=== PATIENT | female | born 1970 | race Caucasian/White ===

== ENCOUNTER 2018-06-02 23:47 | Observation (INO) | payer OTHER ==
[2018-06-03] MEDS: SOD CHLORIDE 0.9% 1,000 ML IV ×2 (00:07→08:00)
[2018-06-03] MEDS: LORAZEPAM 2 MG INJ IV ×2 (00:07→01:37)
[2018-06-03 00:51] LABS: ADD MAN DIFF? NO
[2018-06-03 00:53] LABS: WHITE BLOOD COUNT 10.6 10^3/ul (4.8-10.8)
[2018-06-03 00:53] LABS: BASOPHILS % 0.3 % (0.0-2.0); EOSINOPHILS % 0.3 % (0.0-7.0); HEMATOCRIT 37.9 % (37.0-47.0); HEMOGLOBIN 14.1 g/dl (12.0-16.0); LYMPHOCYTES # 1.4 10^3/ul (0.8-2.9); LYMPHOCYTES % 13.6 % (15.0-51.0); MEAN CORPUSCULAR HEMOGLOBIN 31.1 pg (29.0-33.0); MEAN CORPUSCULAR HGB CONC 37.2 g/dl (32.0-37.0); MEAN CORPUSCULAR VOLUME 83.5 fl (82.0-101.0); MEAN PLATELET VOLUME 8.3 fl (7.4-10.4); MONOCYTE # 0.4 10^3/ul (0.3-0.9); MONOCYTES % 3.8 % (0.0-11.0); NEUTROPHIL # 8.6 10^3/ul (1.6-7.5); NEUTROPHILS % 81.6 % (39.0-77.0); PLATELET COUNT 325 10^3/UL (140-415); RED BLOOD COUNT 4.54 10^6/ul (4.20-5.40); RED CELL DISTRIBUTION WIDTH 11.4 % (11.5-14.5)
[2018-06-03 01:13] LABS: ANION GAP 11 (5-13); BLOOD UREA NITROGEN 10 mg/dl (7-20); CALCIUM 9.2 mg/dl (8.4-10.2); CARBON DIOXIDE 27 mmol/L (21-31); CHLORIDE 86 mmol/L (97-110); CREATININE 0.47 mg/dl (0.44-1.00); Estimated GFR > 60 mL/min (>60); GLUCOSE 156 mg/dl (70-220); POTASSIUM 3.3 mmol/L (3.5-5.1); SODIUM 124 mmol/L (135-144)
[2018-06-03] MEDS ORDERED: ACETAMINOPHEN 325 MG TAB PO (05:00)
[2018-06-03] MEDS ORDERED: NACL 0.9% 3 ML SYG IV (05:00)
[2018-06-03] MEDS ORDERED: LABETALOL HCL 20MG INJ IV (05:00)
[2018-06-03] MEDS ORDERED: DIAZEPAM 5 MG/ML SYG IV (05:00)
[2018-06-03] MEDS ORDERED: METOCLOPRAMIDE 10 MG INJ IV (05:00)
[2018-06-03] MEDS: POTASSIUM CHLORIDE 100 ML IVPB (08:05)
[2018-06-03 09:45] LABS: OSMOLALITY 254 mOsm/kg (280-295)
[2018-06-03] MEDS: LACOSAMIDE (100 MG/10 ML PO SYR) PO ×2 (12:19→20:35)
[2018-06-03] MEDS: LEVOTHYROXINE 125 MCG TAB PO (12:19)
[2018-06-03 12:55] LABS: SODIUM,URINE RANDOM 17 mmol/L (30-90)
[2018-06-03 12:58] LABS: OSMOLALITY,URINE 99 mOsm/kg (250-1200)
[2018-06-03 13:01] LABS: HEMOGLOBIN A1C 4.5 % (0-5.9)
[2018-06-03 13:04] LABS: SODIUM 132 mmol/L (135-144)
[2018-06-03 13:10] LABS: MAGNESIUM 1.8 mg/dl (1.7-2.5)
[2018-06-03 14:25] LABS: ADD UMIC YES; UR ASCORBIC ACID NEGATIVE (NEGATIVE); UR BACTERIA FEW /HPF (NONE SEEN); UR BILIRUBIN (Dip) NEGATIVE (NEGATIVE); UR BLOOD (Dip) 1+ mg/dL (NEGATIVE); UR CLARITY CLEAR (CLEAR); UR COLOR STRAW (YELLOW); UR GLUCOSE (Dip) NEGATIVE (NEGATIVE); UR KETONES (Dip) NEGATIVE (NEGATIVE); UR LEUKOCYTE ESTERASE (Dip) 3+ Leu/ul (NEGATIVE); UR MUCUS FEW /HPF (NONE SEEN); UR NITRITE (Dip) NEGATIVE (NEGATIVE); UR RBC 1 /HPF (0-5); UR SPECIFIC GRAVITY (Dip) 1.003 (1.003-1.030); UR TOTAL PROTEIN (Dip) NEGATIVE (NEGATIVE); UR UROBILINOGEN (Dip) NEGATIVE (NEGATIVE); UR WBC 22 /HPF (0-5)
[2018-06-03 14:37] LABS: AMPHETAMINE/METHAMPHETAMINE Negative (NEGATIVE); BARBITURATES Negative (NEGATIVE); CANNABINOIDS Negative (NEGATIVE); COCAINE Negative (NEGATIVE); OPIATES Negative (NEGATIVE)
[2018-06-03 14:40] LABS: BENZODIAZEPINES Positive (NEGATIVE)
[2018-06-03 15:41] LABS: SODIUM 132 mmol/L (135-144)
[2018-06-03 15:45] LABS: ALANINE AMINOTRANSFERASE 40 IU/L (13-69); ALBUMIN 4.2 g/dl (3.3-4.9); ALKALINE PHOSPHATASE 91 IU/L (42-121); ASPARTATE AMINO TRANSFERASE 23 IU/L (15-46); BILIRUBIN,INDIRECT 0.3 mg/dl (0-1.1); BILIRUBIN,TOTAL 0.3 mg/dl (0.2-1.3); PHOSPHORUS 3.5 mg/dl (2.5-4.9)
[2018-06-03 22:32] LABS: SODIUM 137 mmol/L (135-144)
[2018-06-04 05:36] LABS: ADD MAN DIFF? NO
[2018-06-04 05:38] LABS: WHITE BLOOD COUNT 7.2 10^3/ul (4.8-10.8)
[2018-06-04 05:38] LABS: BASOPHILS % 0.6 % (0.0-2.0); EOSINOPHILS % 0.6 % (0.0-7.0); HEMATOCRIT 41.6 % (37.0-47.0); HEMOGLOBIN 14.9 g/dl (12.0-16.0); LYMPHOCYTES % 28.1 % (15.0-51.0); MEAN CORPUSCULAR HEMOGLOBIN 30.8 pg (29.0-33.0); MEAN CORPUSCULAR HGB CONC 35.8 g/dl (32.0-37.0); MEAN CORPUSCULAR VOLUME 86.1 fl (82.0-101.0); MEAN PLATELET VOLUME 8.8 fl (7.4-10.4); MONOCYTE # 0.6 10^3/ul (0.3-0.9); MONOCYTES % 8.9 % (0.0-11.0); NEUTROPHIL # 4.4 10^3/ul (1.6-7.5); NEUTROPHILS % 61.5 % (39.0-77.0); PLATELET COUNT 356 10^3/UL (140-415); RED BLOOD COUNT 4.83 10^6/ul (4.20-5.40)
[2018-06-04 06:00] LABS: ALANINE AMINOTRANSFERASE 39 IU/L (13-69); ALBUMIN/GLOBULIN RATIO 1.48; ALKALINE PHOSPHATASE 89 IU/L (42-121); ANION GAP 13 (5-13); ASPARTATE AMINO TRANSFERASE 21 IU/L (15-46); BILIRUBIN,INDIRECT 0.3 mg/dl (0-1.1); BILIRUBIN,TOTAL 0.3 mg/dl (0.2-1.3); BLOOD UREA NITROGEN 12 mg/dl (7-20); CALCIUM 9.7 mg/dl (8.4-10.2); CARBON DIOXIDE 24 mmol/L (21-31); CHLORIDE 102 mmol/L (97-110); CHOL/HDL RATIO 3.4 RATIO; CHOLESTEROL 181 mg/dl (100-200); CREATININE 0.68 mg/dl (0.44-1.00); Estimated GFR > 60 mL/min (>60); GLUCOSE 92 mg/dl (70-220); HDL CHOLESTEROL 52 mg/dl (37-92); LDL CHOLESTEROL,CALCULATED 108 mg/dl; POTASSIUM 3.8 mmol/L (3.5-5.1); SODIUM 139 mmol/L (135-144); TOTAL PROTEIN 6.7 g/dl (6.1-8.1); TRIGLYCERIDES 106 mg/dl (0-149)
[2018-06-04] MEDS: LEVOTHYROXINE 125 MCG TAB PO (06:33)
[2018-06-04 07:05] LABS: HEMOGLOBIN A1C 4.5 % (0-5.9)
[2018-06-04] MEDS: LACOSAMIDE (100 MG/10 ML PO SYR) PO (09:49)
== END 2018-06-04 14:55 | disposition home health service (06) ==
LOC: E/R 23:47 → 6WM 06-03 01:33
DX: E87.1 Hypo-osmolality and hyponatremia (principal); G40.909 Epilepsy, unspecified, not intractable, without status epilepticus; G35 Multiple sclerosis
CPT/HCPCS: 70450; 80048; 80053; 80061; 80076; 80307; 81001; 83036; 83735; 83930; 83935; 84100; 84295; 84300; 84439; 84443; 85025; 87086; 92610; 96374; 97161; 99291-25; G0378